=== PATIENT | male | born 1940 | race Caucasian/White ===

== ENCOUNTER 2019-04-28 13:39 | Observation (INO) ==
[2019-04-28] MEDS ORDERED: Albuterol 2.5 MG/3 ML NEBULIZER IH ONE (14:01)
--- NOTE | 2019-04-28 14:10 | Emergency Department Note ---
Disposition Clinical Impression: Acute respiratory failure with hypoxia Acute bronchitis Qualifiers: Bronchitis organism: unspecified organism Qualified Code(s): J20.9 - Acute bronchitis, unspecified Disposition: Admitted As Inpatient Condition: Fair Referrals: NONE,PCP [Primary Care Provider] - Forms: ED Satisfaction Letter Time of Disposition: 18:00 URI/Sore Throat HPI - General Chief Complaint: ED Upper Respiratory Infection Stated Complaint: cough,fever Time Seen by Provider: 04/28/19 13:55 Source: patient Limitations: no limitations Nursing Notes Reviewed: Yes Vital Signs Reviewed: Yes - History of Present Illness HPI Narrative: 79-year-old male percents for evaluation of cough, fever, and mild shortness of breath. Patient states that recently has had upper respiratory symptoms that seem to be improving and then over the last 24 hours has gotten worse. Patient's fevers has been as high as 101. He denies any chest pain. He denies any runny nose or sore throat. He states he has no prior history of asthma or COPD. He is a nonsmoker - Related Data Home Medications Medication Instructions Recorded Confirmed Aspirin [Lo-Dose Aspirin EC] 81 mg PO DAILY 04/28/19 04/28/19 Atorvastatin [Lipitor] 20 mg PO HS 04/28/19 04/28/19 Levothyroxine Sodium [Levo-T] 75 mcg PO DAILY 04/28/19 04/28/19 Lisinopril 2.5 mg PO DAILY 04/28/19 04/28/19 metFORMIN [Glucophage] 500 mg PO BIDWM 04/28/19 04/28/19 Allergies Allergy/AdvReac Type Severity Reaction Status Date / Time acetaminophen [From Tylenol] Allergy See Verified 04/28/19 13:58 Comments Penicillins Allergy Anaphylaxis Verified 04/28/19 13:58 All systems ED: reviewed and negative except as stated. Review of Systems: As Per HPI URI PMH - Past Medical History Medical history: Reports: diabetes, hyperlipidemia, hypertension, thyroid disease Psychiatric history: Reports: no psych history - Social History Smoking Status: Never smoker Alcohol use: Reports: none Drug use: Reports: none Physical Exam Constitutional: Patient is alert, healthy, well-nourished, comfortable and cooperative. . The patient appears nontoxic. HENT: Head: Normocephalic and atraumatic. Right Ear: External ear normal. Left Ear: External ear normal. Nose: Mucous membranes are erythematous with some serous discharge Mouth/Throat: Mucous membranes show [good hydration. Posterior erythema and drainage is noted with no significant tonsillar enlargement or exudates Eyes: Conjunctivae and EOM are normal. Pupils are round and equal. Right eye exhibits no discharge. Left eye exhibits no discharge. Neck: Normal range of motion and phonation normal. Neck supple. Pulmonary/Chest: Effort normal. No stridor. No tachypnea. No respiratory distress. Breath sounds are equal bilaterally with few upper airway noises . There is diffuse rhonchi with wheezes heard with coughing. No Rales Musculoskeletal: Normal range of motion of all unaffected extremeties. Neurological: Patient is alert and awake. Patient moves all 4 extremities equally. There is no atrophy and no tremor. No gross cranial nerve deficit and there exhibits normal muscle tone. Coordination normal. Skin: Skin is warm and dry. No rash noted. No erythema. Psychiatric: Patient has a normal mood and affect. Course Course Narrative: [ Patient is unable to maintain his pulse oximeter above 90%. I will discuss the case with the hospitalist Dr. Saunders for admission. Patient seems to have underlying COPD that has not been diagnosed. It is acutely exacerbated by acute bronchitis ] Discussed diagnosis and further treatment plans with patient [and significant other]. Questions addressed. Vital Signs Temperature 100.9 F H 04/28/19 13:52 Pulse Rate 99 04/28/19 13:52 Respiratory Rate 16 04/28/19 13:52 Blood Pressure 157/78 04/28/19 13:52 O2 Sat by Pulse Oximetry 89 04/28/19 13:52 Temperature 99.4 F 04/28/19 17:08 Pulse Rate 89 04/28/19 17:08 Respiratory Rate 16 04/28/19 17:08 Blood Pressure 141/76 04/28/19 17:08 O2 Sat by Pulse Oximetry 93 04/28/19 17:08 Oxygen Delivery Oxygen Delivery Nasal Cannula Upper Respiratory Infection - MDM Narrative Medical decision making narrative: Initial differential diagnoses upon presentation would include COPD, PULMONARY EMBOLISM, PULMONARY EDEMA, PNEUMONIA, PNEUMOTHORAX, STATUS ASTHMATICUS, ACUTE RESPIRATORY FAILURE, PLEURAL EFFUSION, HEMOTHORAX. - Lab Data Lab results reviewed: Yes I reviewed the patient's lab results. Result diagrams: 04/28/19 15:00 04/28/19 15:00 Lab Results 0604/28/19 04/28/19 Range/Units 15:00 15:00 15:00 WBC 22.0 H (4.3-11.1) K/mcL RBC 4.83 (4.19-5.50) M/mcL Hgb 14.5 (12.9-16.9) g/dL Hct 44.5 (37.5-50.1) % MCV 92.1 (83.0-100.0) fL MCH 30.0 (28.0-33.3) pg MCHC 32.6 (31.6-35.5) g/dL RDW 13.3 (11.5-14.5) % Plt Count 399 (140-400) K/mcL MPV 10.2 (9.4-12.4) fL Immature Gran % 0.5 (0-4) % Seg Neutrophils % 67.8 % Lymphocytes % 22.9 % Monocytes % 7.7 % Eosinophils % 0.7 % Basophils % 0.4 % Neutrophils # 14.9 H (1.6-8.9) K/mcL Lymphocytes # 5.0 H (0.6-4.6) K/mcL Monocytes # 1.7 H (0.0-1.3) K/mcL Eosinophils # 0.2 (0.0-0.6) K/mcL Basophils # 0.1 (0.0-0.2) K/mcL D-Dimer 1071 H (0-500) ng/mLFEU ABG pH (7.32-7.45) pH Units ABG pCO2 (35-45) mmHg ABG pO2 (85-104) mmHg ABG HCO3 (21-27) mEq/L ABG Total CO2 (20-26) mEq/L ABG O2 Saturation (95-98) % ABG Base Excess (-2 to 3) mEq/L Sodium 134 L (136-145) mEq/L Potassium 3.5 (3.5-5.1) mEq/L Chloride 98 (98-107) mEq/L Carbon Dioxide 28 (23-29) mEq/L BUN 15 (8-23) mg/dL Creatinine 1.31 H (0.70-1.30) mg/dL Est GFR ( Amer) > 60 (> 60) Est GFR (Non-Af Amer) 53 L (> 60) BUN/Creatinine Ratio 11 (6-26) Glucose 143 H (70-105) mg/dL Calculated Osmolality 281 (280-300) Calcium 9.4 (8.6-10.3) mg/dL Total Bilirubin 0.4 (0.3-1.0) mg/dL AST 19 (13-39) Units/L ALT 21 (7-52) Units/L Alkaline Phosphatase 71 (34-104) Units/L Serum Total Protein 7.7 (6.4-8.9) g/dL Albumin 4.3 (3.5-5.7) g/dL Globulin 3.4 (2.4-3.5) g/dL Albumin/Globulin Ratio 1.3 (1.1-2.2) Person Notif of Crit 04/28/19 Range/Units 15:05 WBC (4.3-11.1) K/mcL RBC (4.19-5.50) M/mcL Hgb (12.9-16.9) g/dL Hct (37.5-50.1) % MCV (83.0-100.0) fL MCH (28.0-33.3) pg MCHC (31.6-35.5) g/dL RDW (11.5-14.5) % Plt Count (140-400) K/mcL MPV (9.4-12.4) fL Immature Gran % (0-4) % Seg Neutrophils % % Lymphocytes % % Monocytes % % Eosinophils % % Basophils % % Neutrophils # (1.6-8.9) K/mcL Lymphocytes # (0.6-4.6) K/mcL Monocytes # (0.0-1.3) K/mcL Eosinophils # (0.0-0.6) K/mcL Basophils # (0.0-0.2) K/mcL D-Dimer (0-500) ng/mLFEU ABG pH 7.42 (7.32-7.45) pH Units ABG pCO2 38 (35-45) mmHg ABG pO2 47 L* (85-104) mmHg ABG HCO3 25 (21-27) mEq/L ABG Total CO2 26 (20-26) mEq/L ABG O2 Saturation 84 L (95-98) % ABG Base Excess 1 (-2 to 3) mEq/L Sodium (136-145) mEq/L Potassium (3.5-5.1) mEq/L Chloride (98-107) mEq/L Carbon Dioxide (23-29) mEq/L BUN (8-23) mg/dL Creatinine (0.70-1.30) mg/dL Est GFR ( Amer) (> 60) Est GFR (Non-Af Amer) (> 60) BUN/Creatinine Ratio (6-26) Glucose (70-105) mg/dL Calculated Osmolality (280-300) Calcium (8.6-10.3) mg/dL Total Bilirubin (0.3-1.0) mg/dL AST (13-39) Units/L ALT (7-52) Units/L Alkaline Phosphatase (34-104) Units/L Serum Total Protein (6.4-8.9) g/dL Albumin (3.5-5.7) g/dL Globulin (2.4-3.5) g/dL Albumin/Globulin Ratio (1.1-2.2) Person Notif of Crit ANNIE Sword - Radiology Data Radiology results reviewed: Yes I reviewed the patient's radiology results. XR/XR chest 2V IMPRESSION: 1. No acute cardiopulmonary disease. 2. COPD.
[2019-04-28 15:11] LABS: ABG Base Excess 1 mEq/L (-2 to 3); ABG HCO3 25 mEq/L (21-27); ABG Oxygen Saturation 84 % (95-98); ABG PCO2 38 mmHg (35-45); ABG PH 7.42 pH Units (7.32-7.45); ABG PO2 47 mmHg (85-104); ABG TCO2 26 mEq/L (20-26)
[2019-04-28 15:18] LABS: Basophils # 0.1 K/mcL (0.0-0.2); Basophils % 0.4 %; Eosinophils # 0.2 K/mcL (0.0-0.6); Eosinophils % 0.7 %; Hematocrit 44.5 % (37.5-50.1); Hemoglobin 14.5 g/dL (12.9-16.9); Immature Granulocytes % 0.5 % (0-4); Lymphocytes % 22.9 %; Mean Corpuscular HGB Conc 32.6 g/dL (31.6-35.5); Mean Corpuscular Volume 92.1 fL (83.0-100.0); Mean Platelet Volume 10.2 fL (9.4-12.4); Monocytes # 1.7 K/mcL (0.0-1.3); Monocytes % 7.7 %; Neutrophils # 14.9 K/mcL (1.6-8.9); Platelet Count 399 K/mcL (140-400); Red Blood Count 4.83 M/mcL (4.19-5.50); Red Cell Distribution Width 13.3 % (11.5-14.5); Segmented Neutrophils % 67.8 %
[2019-04-28] MEDS ORDERED: methylPREDNISolone 125 MG/2 ML VIAL IVP ONE (15:23)
[2019-04-28 15:37] LABS: Alanine Aminotransferase 21 Units/L (7-52); Albumin 4.3 g/dL (3.5-5.7); Albumin/Globulin Ratio 1.3 (1.1-2.2); Alkaline Phosphatase 71 Units/L (34-104); Aspartate Amino Transferase 19 Units/L (13-39); BUN/Creatinine Ratio 11 (6-26); Bilirubin,Total 0.4 mg/dL (0.3-1.0); Blood Urea Nitrogen 15 mg/dL (8-23); Calcium 9.4 mg/dL (8.6-10.3); Carbon Dioxide 28 mEq/L (23-29); Chloride 98 mEq/L (98-107); Globulin 3.4 g/dL (2.4-3.5); Glucose 143 mg/dL (70-105); Osmolality,Calculated 281 (280-300); Potassium 3.5 mEq/L (3.5-5.1); Sodium 134 mEq/L (136-145); Total Protein 7.7 g/dL (6.4-8.9); eGFR For African Americans > 60 (> 60); eGFR For Non-African Americans 53 (> 60)
[2019-04-28] MEDS ORDERED: Isovue-370 500 ML BOTTLE IVP ONE (17:18)
[2019-04-28] MEDS ORDERED: methylPREDNISolone 125 MG/2 ML VIAL IM SCH ×2 (18:00→18:16)
[2019-04-28] MEDS ORDERED: Naloxone 0.4 MG/ML INJ IVP PRN (18:16)
[2019-04-28] MEDS ORDERED: Insulin LISPRO 300 UNITS/3 ML VIAL SQ SCH (21:30)
[2019-04-28] MEDS: Albuterol 2.5 MG/3 ML NEBULIZER IH SCH (21:43)
[2019-04-29] MEDS: Albuterol 2.5 MG/3 ML NEBULIZER IH SCH ×3 (05:00→15:38)
[2019-04-29] MEDS ORDERED: methylPREDNISolone 125 MG/2 ML VIAL IM SCH (06:00)
[2019-04-29] MEDS ORDERED: cefTRIAXone 1,000 MG in Water for inj. (sterile) 10 ML IVP ONE (06:00)
[2019-04-29] MEDS ORDERED: methylPREDNISolone 125 MG/2 ML VIAL IVP SCH (06:00)
[2019-04-29] MEDS ORDERED: *HR* Enoxaparin 40 MG/0.4 ML SYRINGE SQ SCH (07:00)
[2019-04-29] MEDS: Insulin LISPRO 300 UNITS/3 ML VIAL SQ SCH ×3 (07:55→17:03)
[2019-04-29] MEDS ORDERED: Aspirin Enteric Coated 81 MG Tablet PO SCH (09:00)
--- NOTE | 2019-04-29 09:14 | Internal Med History&Physical ---
Date of Encounter: 04/29/19 Time of Encounter: 09:12 Assessment and Plan (1) Acute respiratory failure with hypoxia Current visit: Yes Status: Acute Patient presented to emergency department yesterday with complaints of shortness of breath. Patient had experienced pulmonary congestion and was found to have a oxygen saturation in the mid 80s while on room air. Patient chest x-ray showed no infectious process. Patient was started on cortical steroids and oxygen. Today patient's lungs are clear throughout minimal basilar rales heard. Afebrile. Denies any cough. Denies any dyspnea or discomforts. We will wean oxygen to room air and monitor patient's oximetry. We will continue with current plan of care (2) Diabetes Current visit: Yes Status: Chronic No acute issues. Patient's glucose has been slightly elevated with readings greater than 200. Metformin currently is being held since patient had received dye during his CTA. We will continue to cover patient with sliding scale insulin. 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 Vital signs stable. We will continue on current medications. Qualifiers: Hypertension type: essential hypertension Qualified Code(s): I10 - Essential (primary) hypertension Internal Medicine - H&P: HPI Chief complaint: shortness of breath Admitted From: Home Plans for Post Hospital Care: Home History of present illness: Mr. Hernandez is a 79 year old male, who presented to the emergency department yesterday with complaints of increasing shortness of breath. Patient states that he has had flulike symptoms for the past 2 weeks and felt that he was getting better, but 2 days ago he felt that he was turning worse. Patient states that he had a productive cough with a white thick sputum. He had noted that he was having increased dyspnea on exertion. Stated that he had a fever prior to admission and decided to be evaluated. Patient states he has a remote history of smoking and tobacco use. He states that when he is in his usual state out that he can ambulate distances without dyspnea. He denies any use of bronchodilators at home. Patient was admitted to the medical floor and started on cortical steroids. Chest x-ray showed no infectious process. Patient had elevated d-dimer and had a CTA of the chest obtained which showed no acute process. Admission WBC was 22. While in ER it was documented a patient had rhonchi and extremely wheezes and was experiencing hypoxia with saturations in the mid 80s while on room air. Today patient appears relaxant denies any dyspnea, discomforts or productive cough. Lungs are clear throughout with minimal fine rales heard to the anterior bases. Patient's oxygen saturation has maintaining greater than 90% while on 2 L. Denies any fever or chills. Denies any sore throat Past Med Surg Social Fam HX - Past Medical History Medical history: COPD, diabetes, hyperlipidemia, thyroid disease Psychiatric history: no psych history - Past Surgical History Additional surgical history: "part of pancreas and spleen removed" 2006 - Social History Smoking Status: Never smoker Smokeless Tobacco Status: No Alcohol use: none Drug use: none - Family History Mother Living Status: Age at : 56 Cause of : lung cancer Hx Family Cancer: Yes Internal Medicine - H&P: Meds Aspirin [Lo-Dose Aspirin EC] 81 mg PO DAILY 04/28/19 [History] Atorvastatin [Lipitor] 20 mg PO HS 04/28/19 [History] Levothyroxine Sodium [Levo-T] 75 mcg PO DAILY 04/28/19 [History] Lisinopril 2.5 mg PO DAILY 04/28/19 [History] metFORMIN [Glucophage] 500 mg PO BIDWM 04/28/19 [History] Allergy/AdvReac Type Severity Reaction Status Date / Time acetaminophen [From Tylenol] Allergy See Verified 04/28/19 13:58 Comments Penicillins Allergy Anaphylaxis Verified 04/28/19 13:58 All Systems PM: A 10-system review of systems was performed and is negative for pertinent findings except as documented above in the HPI. - Constitutional Constitutional: as per HPI, no chills, no fever(s), no night sweats - EENT Eyes: as per HPI, no change in vision, no discharge, no pain, no photophobia Ears: as per HPI, no ear discharge, no ear pain, no tinnitus Nose, mouth and throat: as per HPI, no dysphagia, no nasal discharge, no neck pain, no sore throat - Breasts Breasts: as per HPI - Cardiovascular Cardiovascular ROS IM: as per HPI, no chest pain, no diaphoresis, no dyspnea, no lightheadedness, no palpitations, no syncope - Respiratory Respiratory: as per HPI, no cough, no dyspnea, no wheezing, no excessive phlegm production - Gastrointestinal Gastrointestinal: as per HPI, no abdominal pain, no diarrhea, no hematemesis, no hematochezia, no melena, no nausea, no vomiting - Genitourinary Genitourinary ROS male: as per HPI - Musculoskeletal Musculoskeletal ROS IM: as per HPI, no numbness, no tingling - Integumentary Integumentary IM: as per HPI, no rash, no unusual bruising - Neurological Neurological ROS: as per HPI, no confusion, no convulsions, no focal weakness, no numbness, no tingling, no tremor(s) - Psychiatric Psychiatric: as per HPI - Hematologic/Lymphatic Hematologic/Lymphatic: no easy bruising - Constitutional Vitals: Temp Pulse Resp BP Pulse Ox 97.2 F L 88 12 140/84 96 04/29/19 03:36 04/29/19 03:36 04/29/19 05:00 04/29/19 03:36 04/29/19 05:00 General appearance: Present: A&O X 3, pleasant - Head Head exam: Present: atraumatic, normocephalic - Eye Eye exam: Present: PERRL, conjuntiva pink, sclera anicteric Pupils: Present: PERRL - Neck Neck exam general surgery: Present: supple, trachea midline. Absent: lymph adenopathy - Respiratory Respiratory exam: Present: CTAB, rales. Absent: accessory muscle use, rhonchi, wheezes Additional comments: Lungs are clear throughout with minimal fine rales heard by basilar. Respiratory effort appears relaxed. Saturation greater than 90% on 2 L. No productive cough noted - Cardiovascular Cardiovascular exam: Present: RRR, +S1, +S2. Absent: diastolic murmur, gallop, rubs, systolic murmur - GI/Abdominal GI/Abdominal exam: Present: normal bowel sounds, soft, no peritoneal signs. Absent: distended, tenderness - Extremities Exam Extremities exam: Present: warm, radial pulses palpable and symmetrical. Absent: calf tenderness, cyanotic, pedal edema - Neurological Exam Neurological exam: Present: CN II-XII intact, oriented X3, no focal deficits. Absent: pronater drift, facial droop, speech deficit - Skin Skin exam: Present: dry, intact Internal Med - H&P Results - Labs CBC & Chem 7: 04/28/19 15:00 04/28/19 15:00 Labs: Short CBC 04/28/19 Range/Units 15:00 WBC 22.0 H (4.3-11.1) K/mcL Hgb 14.5 (12.9-16.9) g/dL Hct 44.5 (37.5-50.1) % Plt Count 399 (140-400) K/mcL Neutrophils # 14.9 H (1.6-8.9) K/mcL BMP 04/28/19 15:00 Sodium 134 L Potassium 3.5 Chloride 98 Carbon Dioxide 28 BUN 15 Creatinine 1.31 H Glucose 143 H Calcium 9.4 Liver Function 04/28/19 Range/Units 15:00 Total Bilirubin 0.4 (0.3-1.0) mg/dL AST 19 (13-39) Units/L ALT 21 (7-52) Units/L Alkaline Phosphatase 71 (34-104) Units/L Albumin 4.3 (3.5-5.7) g/dL - ABG Interpretation ABG results: 04/28/19 15:05 ABG pH 7.42 ABG pCO2 38 ABG pO2 47 L* ABG HCO3 25 ABG Total CO2 26 ABG O2 Saturation 84 L ABG Base Excess 1 - Impressions ITS Impressions Chest X-Ray 04/28/19 14:01 IMPRESSION: 1. No acute cardiopulmonary disease. 2. COPD. D/ / 04/28/2019 14:24:46 Jeanna Sosa MD / chon Interpreting Provider: Jeanna Sosa MD Chest CTA 04/28/19 17:18 IMPRESSION: 1. No evidence of pulmonary embolic disease. 2. Bronchial wall thickening particularly within the lower lobes bilaterally with areas of volume loss and consolidation particularly in the right lower lobe, likely atelectasis. 3. Multiple mediastinal nodes, likely reactive. D/ / 04/28/2019 18:02:40 Campos Morris MD / chon Interpreting Provider: Campos Morris MD
[2019-04-29 09:21] VITALS: BP 162/79
[2019-04-29] MEDS ORDERED: Azithromycin 250 MG TABLET PO ONE (11:49)
[2019-04-29] MEDS ORDERED: predniSONE 20 MG TABLET PO SCH (12:00)
[2019-04-29 13:57] LABS: Basophils % 0.2 %; Eosinophils % 0.1 %; Immature Granulocytes % 0.9 % (0-4); Lymphocytes # 1.1 K/mcL (0.6-4.6); Lymphocytes % 5.5 %; Mean Corpuscular HGB Conc 33.3 g/dL (31.6-35.5); Mean Corpuscular Volume 89.9 fL (83.0-100.0); Mean Platelet Volume 10.2 fL (9.4-12.4); Monocytes # 1.1 K/mcL (0.0-1.3); Monocytes % 5.5 %; Neutrophils # 17.1 K/mcL (1.6-8.9); Platelet Count 403 K/mcL (140-400); Red Blood Count 4.67 M/mcL (4.19-5.50); Red Cell Distribution Width 13.2 % (11.5-14.5); Segmented Neutrophils % 87.8 %; White Blood Count 19.5 K/mcL (4.3-11.1)
[2019-04-29 14:19] LABS: Alanine Aminotransferase 19 Units/L (7-52); Albumin 4.1 g/dL (3.5-5.7); Albumin/Globulin Ratio 1.2 (1.1-2.2); Alkaline Phosphatase 64 Units/L (34-104); Aspartate Amino Transferase 13 Units/L (13-39); BUN/Creatinine Ratio 18 (6-26); Bilirubin,Total 0.2 mg/dL (0.3-1.0); Blood Urea Nitrogen 22 mg/dL (8-23); Calcium 9.3 mg/dL (8.6-10.3); Carbon Dioxide 22 mEq/L (23-29); Chloride 99 mEq/L (98-107); Globulin 3.4 g/dL (2.4-3.5); Glucose 424 mg/dL (70-105); Osmolality,Calculated 297 (280-300); Potassium 4.1 mEq/L (3.5-5.1); Sodium 133 mEq/L (136-145); Total Protein 7.5 g/dL (6.4-8.9); eGFR For African Americans > 60 (> 60); eGFR For Non-African Americans 58 (> 60)
--- NOTE | 2019-04-29 14:28 | Discharge Summary ---
Orders not resulted at time of discharge: Pending orders 04/29/19 13:52 CBC [Complete Blood Count] [HEME] Routine Date of Encounter: 04/29/19 Time of Encounter: 12:00 - Discharge Diagnosis (1) Acute respiratory failure with hypoxia Priority: Primary Status: Acute Comments: Patient was admitted to the emergency department with complaints of shortness of breath, hypoxia and an elevated temp. Patient's lungs were very congested when he presented to emergency department. Patient was admitted to the medical floor where he received antibiotics and corticosteroids and improved overnight. Today patient's lungs were fairly clear with minimal amount of fine posterior basilar rales. No wheezes. Patient ambulated in the snell on room air and maintain saturation greater than 90%. Patient will be continued on antibiotics and given a prescription for prednisone burst. Patient was recommended to follow-up with his primary care physician within one week (2) Diabetes Priority: Secondary Status: Chronic Comments: Patient is on oral metformin at home for diabetic coverage, but was discontinued due to receiving contrast I during his CTA of chest. Patient has also been started on cortical steroids and this caused his glucose to elevate. Patient was covered with sliding scale with most of his readings greater than 300. Patient will be discharged with a prescription for Humalog insulin and a sliding scale and is being instructed to continue before meals and at bedtime fingersticks at home for the next week until he is seen by his PCP. Patient states that he has a glucometer at home, to include supportive supplies. Patient can resume his metformin after 2 days Qualifiers: Diabetes mellitus type: type 2 Diabetes mellitus assisted insulin use: without terminal press operator use Diabetes mellitus complication status: without complication Qualified Code(s): E11.9 - Type 2 diabetes mellitus without complications (3) Hypertension Priority: Secondary Status: Chronic Comments: Patient's vital signs remained stable during stay of facility. Patient will be discharged on current medications and was recommended to follow-up with PCP for further monitoring Qualifiers: Hypertension type: essential hypertension Qualified Code(s): I10 - Essential (primary) hypertension Hospital course: Mr. Hernandez is a 79 year old male, who presented to emergency department with complaints of increasing shortness of breath over the past several days. Patient reported had a low-grade fever prior to admission and during his ER visit was found to be hypoxic with oxygen saturations in the mid 80s on room air. Patient was admitted to the medical floor with diagnosis of bronchitis. Chest x-ray showed no infectious process. Patient's d-dimer was elevated and recently received a chest CTA which was negative. Patient received antibiotics and cortical steroids during his stay on the medical floor and provide the next 24 hours he had showed much improvement. Patient's lungs were clear during exam and he experienced no continued complaints of dyspnea. Patient ambulated in the snell on room air and maintain saturation greater than 90% and again denied any dyspnea. He has remained afebrile. Patient is being discharged to home with a prescription for Zithromax and a prednisone burst. Patient also has a prescription for Humalog insulin. Patient's home medications that include metformin, which required to be held due to his receiving contrast dye during his CTA. Patient is given instructions to do fingersticks before meals and at bedtime and was provided a sliding scale for coverage. Patient instructed to continue insulin coverage for the next 2-3 days. Patient was instructed he may restart his metformin in 2 days. Patient recommended to follow up with his PCP in one week Discharge discussed with: patient Time spent discussing smoking cessation with patient: 3 to 10 minutes - Time Spent with Patient Total time spent providing and/or coordinating discharge services: Time spent: Less than 30 minutes - Discharge Medications Prescriptions: No Action metFORMIN [Glucophage] 500 mg PO BIDWM Levothyroxine Sodium [Levo-T] 75 mcg PO DAILY Atorvastatin [Lipitor] 20 mg PO HS Lisinopril 2.5 mg PO DAILY Aspirin [Lo-Dose Aspirin EC] 81 mg PO DAILY Home Medications: Aspirin [Lo-Dose Aspirin EC] 81 mg PO DAILY 04/28/19 [History] Atorvastatin [Lipitor] 20 mg PO HS 04/28/19 [History] Levothyroxine Sodium [Levo-T] 75 mcg PO DAILY 04/28/19 [History] Lisinopril 2.5 mg PO DAILY 04/28/19 [History] metFORMIN [Glucophage] 500 mg PO BIDWM 04/28/19 [History] Allergies/Adverse Reactions: Allergy/AdvReac Type Severity Reaction Status Date / Time acetaminophen [From Tylenol] Allergy See Verified 04/28/19 13:58 Comments Penicillins Allergy Anaphylaxis Verified 04/28/19 13:58 Date of admission: 04/28/19 18:23 Primary care physician: PCP NONE Discharging clinician: Alvaro D Smucker - Constitutional Vitals: Temp Pulse Resp BP Pulse Ox 97.8 F 94 16 162/79 93 04/29/19 09:21 04/29/19 09:21 04/29/19 09:39 04/29/19 09:21 04/29/19 09:39 General appearance: Present: A&O X 3, pleasant - Head Head exam: Present: atraumatic, normocephalic - Eye Eye exam: Present: PERRL, conjuntiva pink, sclera anicteric Pupils: Present: PERRL - Neck Neck exam general surgery: Present: supple, trachea midline. Absent: lymphadenopathy - Respiratory Respiratory exam: Present: CTAB, rales. Absent: accessory muscle use, rhonchi, wheezes Additional comments: Patient is on lungs are clear with fine posterior base rales. Respiratory effort appears relaxed. Oxygen saturation has been greater than 90% on room air. No productive cough - Cardiovascular Cardiovascular exam: Present: RRR, +S1, +S2. Absent: diastolic murmur, gallop, rubs, systolic murmur - GI/Abdominal GI/Abdominal exam: Present: normal bowel sounds, soft, no peritoneal signs. Absent: distended, tenderness - Extremities Exam Extremities exam: Present: warm, radial pulses palpable and symmetrical. Absent: calf tenderness, cyanotic, pedal edema - Neurological Exam Neurological exam: Present: CN II-XII intact, oriented X3, no focal deficits. Absent: pronater drift, facial droop, speech deficit - Skin Skin exam: Present: dry, intact - Patient Status Disposition: Home, Self-Care Condition: Good Functional capacity at discharge: independent ambulation Overall status at discharge: patient is progressing back to baseline - Discharge Instructions Instructions: Diabetes Mellitus Type 2 in Adults (DC), Chronic Obstructive Pulmonary Disease (DC) Follow Up With: Koby Benton MD [Partnered Physician] - 06/13/19 10:30 am Susanne Marcano CNP [Advanced Practice Nurse] - 05/05/19 10:00 am Additional Instructions: Follow-up appointments: If there is not an appointment listed below, please call your physician and schedule a follow-up appointment. If you have congestive heart failure and your symptoms return, make an appointment with your physician. Medication List: Carry an up to date list of medications you are taking at all time. We have given you an updated medication list including any new medications that you have been prescribed. Please provide that list to your primary provider Symptoms: If your condition changes or you experience any of the following symptoms, notify your physician immediately: Unusual or worsening pain, fever, persistent nausea and vomiting, bleeding, increase in swelling (especially in your legs), sudden weight gain, extreme dizziness, chest pain, increased drainage or redness from a wound or incision. Go to the emergency department if you experience a problem with breathing. Weights: If you have a history of swelling or shortness of breath, weigh yourself daily and notify your physician if you have a weight gain of two or more pounds in one day or 5 or more pounds in a week. If you experience any of the warning signs for stroke: Sudden numbness or weakness of the face, arm or leg; especially on one side of the body, sudden confusion, trouble speaking or understanding, sudden trouble seeing in one or both eyes, sudden trouble walking, dizziness, loss of balance or coordination, sudden sever headache with no cause; Call 911 or go to the emergency room. Stroke is a medical emergency. Some risk factors for stroke: Age, cigarette smoking, diabetes, excessive alcohol consumption, family history, high blood pressure, overweight, physical inactivity, prior stroke, heart attack, diagnosis of carotid artery stenosis or other artery disease. If you smoke, STOP: Smoking or tobacco use significantly increases your risk of heart and lung disease. Your chance of disease greatly increases if you continue to smoke. For more information, call the [place] tobacco quit line for smoking cessation 9-799-ZDGO-NOW ( ) - Diet and Activity Activity: increase activity as tolerated Diet: diabetic diet, low fat, low cholesterol, low salt diet
[2019-04-30] MEDS ORDERED: Azithromycin 250 MG TABLET PO SCH (09:00)
== END 2019-04-29 17:41 | disposition home or self-care (01) ==
LOC: INPGRE 13:39 → EMEROOGRE 13:39 → INPGRE 18:37